=== PATIENT | female | born 1990 | race Caucasian/White ===

== ENCOUNTER 2020-06-14 14:12 | Outpatient (CLI) | payer OTHER ==
[~2020-06-14 14:12] MED LIST: COLACE 100MG C100 MG PO; IBUPROFEN600 MG PO
[2020-06-22] MEDS ORDERED: IBUPROFEN800 MG PO (16:52)
[2020-06-22] MEDS ORDERED: HYDROCODON-ACE1 EAC4 PO (16:52)
[2020-06-22] MEDS ORDERED: DOCUSATE SODIU100 MG PO (16:52)
== END 2020-06-14 17:12 | disposition home or self-care (01) ==
LOC: GENOP 14:12
DX: O26.893 Other specified pregnancy related conditions, third trimester (principal); Z3A.37 37 weeks gestation of pregnancy
CPT/HCPCS: 81001; G0463

== ENCOUNTER 2020-06-22 05:48 | Inpatient (IN) | payer OTHER ==
[~2020-06-22] VITALS: Ht 157.5 cm; Wt 72.6 kg
[2020-06-22 09:21] LABS: HEMOGLOBIN 10.8 gm/dl (12.3-15.3); RED BLOOD COUNT 3.69 M/UL (4.00-5.10); WHITE BLOOD COUNT 14.6 K/UL (4.5-11.0)
[2020-06-22] MEDS ORDERED: HYDROCODON-ACE1 EAC4 PO (16:52)
[2020-06-22] MEDS ORDERED: DOCUSATE SODIU100 MG PO (16:52)
[2020-06-22] MEDS ORDERED: IBUPROFEN800 MG PO (16:52)
[2020-06-23 05:30] LABS: HEMOGLOBIN 9.9 gm/dl (12.3-15.3)
== END 2020-06-23 12:03 | disposition home or self-care (01) | DRG 807 ==
LOC: OB 05:48
PROVIDERS: ADMIT Obstetrics & Gynecology
PROC: 10E0XZZ Delivery of Products of Conception, External Approach (ICD-10-PCS; principal; 2020-06-22)
PROC: 3E033VJ Introduction of Other Hormone into Peripheral Vein, Percutaneous Approach (ICD-10-PCS; 2020-06-22)
PROC: 10907ZC Drainage of Amniotic Fluid, Therapeutic from Products of Conception, Via Natural or Artificial Opening (ICD-10-PCS; 2020-06-22)
PROC: 10H07YZ Insertion of Other Device into Products of Conception, Via Natural or Artificial Opening (ICD-10-PCS; 2020-06-22)
DX: O99.824 Streptococcus B carrier state complicating childbirth (principal); Z37.0 Single live birth; Z3A.39 39 weeks gestation of pregnancy; O40.3XX0 Polyhydramnios, third trimester, not applicable or unspecified; Z88.5 Allergy status to narcotic agent; O99.333 Smoking (tobacco) complicating pregnancy, third trimester; F17.200 Nicotine dependence, unspecified, uncomplicated
CPT/HCPCS: 36415; 51702; 80307; 81001; 82800; 85014; 85018; 85025; 90471; 90715; G0463; J2590; J2795; J7120